=== PATIENT | female | born 1995 | race Caucasian/White ===

== ENCOUNTER 2020-12-11 07:58 | Day surgery (SDC) | payer MEDICAID ==
[~2020-12-11] VITALS: Ht 154.9 cm; Wt 46.5 kg
[2020-12-11] VITALS (7 sets, daily range): BP systolic 83–116; BP diastolic 33–73; PULSE 57–719; TEMP 97.8–98.2
--- NOTE | 2020-12-11 08:50 | NUR ---
Patient taken by bed for procedure. No further needs expressed from the patient.
[2020-12-11] MEDS ORDERED: IBU600 MG PO (09:38)
--- NOTE | 2020-12-11 10:05 | NUR ---
Patient back to room 342 from the OR. Patient A&Ox4, teary. VSS. Will continue to monitor. IV CDI. Patient instructed to call nursing staff for assistance with ambulation. Denies pain, only reports cramping. No further needs expressed from the patient. Call light within reach
--- NOTE | 2020-12-11 12:15 | NUR ---
Discharge paperwork reviewed with the patient. Patient verbalized an understanding to follow doctors orders. IV removed, tip intact, gauze and bandaid applied. Patient ambulated independently to the ER entrance for a ride home. No further needs expressed from the patient.
--- NOTE | 2020-12-11 15:33 | NUR ---
Plan to DC home. PCP is Dr. Dillard. Patient reports that she has a Fiance Catracho Lloyd that will support her , he will also transport home. Patient obtains medications form [facility]. Patient reports that she does not have any concerns for DC and does not use any medical EPC or have a POA. NF
== END 2020-12-11 12:15 | disposition home or self-care (01) ==
LOC: SDCO 07:58 → SURG 08:00 → SDCO 08:00 → SURG 10:46 → SDCO 12:15
DX: O02.1 Missed abortion (principal); Z87.891 Personal history of nicotine dependence
CPT/HCPCS: OP; J1885; J2405; J2704; J3010; J7120

== ENCOUNTER 2020-12-16 07:16 | Emergency (ER) | payer MEDICAID ==
[~2020-12-16] VITALS: Ht 154.9 cm; Wt 46.8 kg
[~2020-12-16 07:16] MED LIST: IBU600 MG PO
[2020-12-16 07:20] VITALS: TEMP 98.3
[2020-12-16 07:50] LABS: BASO # 0.1 (0.0-0.2); BASO % 0.4 % (0.0-2.0); EOS # 0.4 (0.0-0.7); EOS % 2.5 % (0-4.0); GRAN # 10.1 (1.4-6.5); GRAN % 67.4 % (42.2-75.2); HEMOGLOBIN 10.8 g/dl (12.5-16.0); LYMPH # 3.8 (1.2-3.4); LYMPH % 25.1 % (20.0-51.0); MEAN CELL VOLUME 93 fl (80.0-100.0); MEAN CORPUSCULAR HEMOGLOBIN 31 pg (27.0-31.0); MEAN CORPUSCULAR HGB CONC 33 g/dl (33.0-37.0); MEAN PLATELET VOLUME 9.5 fl (7.4-10.4); MONO # 0.6 (0.1-0.6); PLATELET COUNT 348 K/mm3 (130-400); RED BLOOD COUNT 3.53 M/mm3 (4.10-5.30); REDCELL DISTRIBUTION WIDTH-CV 12.5 % (11.5-14.5)
[2020-12-16 08:07] LABS: HEMATOCRIT 32.8 % (37.0-47.0)
[2020-12-16 08:27] VITALS: BP 106/67; PULSE 91
[2020-12-16] MEDS ORDERED: FLAGYL500 MG PO (22:17)
[2020-12-16] MEDS ORDERED: MOTRIN 400400 MG/TAB PO (22:17)
[2020-12-16] MEDS ORDERED: BACTRIM DS 8001 TAB PO (22:17)
== END 2020-12-16 08:27 | disposition home or self-care (01) ==
LOC: COL.ER 07:16
PROVIDERS: Emergency Medicine
DX: N93.8 Other specified abnormal uterine and vaginal bleeding (principal)
CPT/HCPCS: J1580; J1885

== ENCOUNTER 2021-04-30 19:08 | Emergency (ER) | payer MEDICAID ==
[~2021-04-30] VITALS: Ht 152.4 cm; Wt 48.2 kg
[~2021-04-30 19:08] MED LIST changes: +BACTRIM DS 8001 TAB PO; +FLAGYL500 MG PO; +MOTRIN 400400 MG/TAB PO
[2021-04-30 19:38] VITALS: TEMP 97.8
[2021-04-30 20:11] LABS: BASO # 0.1 (0.0-0.2); BASO % 0.4 % (0.0-2.0); EOS # 0.2 (0.0-0.7); EOS % 1.5 % (0-4.0); GRAN # 9.5 (1.4-6.5); GRAN % 60.7 % (42.2-75.2); HEMOGLOBIN 11.4 g/dl (12.5-16.0); LYMPH # 4.9 (1.2-3.4); LYMPH % 31.2 % (20.0-51.0); MEAN CELL VOLUME 81 fl (80.0-100.0); MEAN CORPUSCULAR HEMOGLOBIN 26 pg (27.0-31.0); MEAN CORPUSCULAR HGB CONC 32 g/dl (33.0-37.0); MEAN PLATELET VOLUME 9.3 fl (7.4-10.4); MONO # 0.9 (0.1-0.6); MONO % 5.7 % (1.7-9.3); PLATELET COUNT 355 K/mm3 (130-400); RED BLOOD COUNT 4.47 M/mm3 (4.10-5.30); REDCELL DISTRIBUTION WIDTH-CV 17.2 % (11.5-14.5)
[2021-04-30 20:12] LABS: HEMATOCRIT 36.2 % (37.0-47.0)
[2021-04-30 20:22] LABS: ALBUMIN 4.4 gm/dL (3.5-5.0); BILIRUBIN,TOTAL 0.2 mg/dL (0.0-1.0); CALCIUM 9.1 mg/dL (8.4-10.2); CREATININE, serum 0.59 (0.52-1.25); POTASSIUM 3.4 mmol/L (3.4-5.0); TOTAL PROTEIN 7.3 gm/dL (6.4-8.2)
[2021-04-30 21:15] LABS: MUCOUS Present /lpf; PH 5 (5-8); SQUAMOUS EPITHELIAL 0-2 /hpf; URINE APPEARANCE Hazy; URINE BACTERIA Rare /hpf; URINE BILIRUBIN Negative (NEGATIVE); URINE BLOOD 2+ (NEGATIVE); URINE CALCIUM OXALATE CRYSTAL Present /hpf; URINE COLOR Yellow; URINE GLUCOSE Negative (NEGATIVE); URINE KETONE Negative (NEGATIVE); URINE LEUKOCYTE ESTERASE Negative (NEGATIVE); URINE NITRATE Negative (NEGATIVE); URINE PROTEIN(semi-quant) Negative (NEGATIVE); URINE UROBILINOGEN Negative (NEGATIVE)
[2021-04-30 21:58] LABS: COLLECTION METHOD CLEAN CATCH
[2021-05-01] MEDS ORDERED: CEPHALEXIN500 M1 PO (00:09)
[2021-05-01 00:46] VITALS: BP 116/70; PULSE 72
== END 2021-05-01 00:48 | disposition home or self-care (01) ==
LOC: COL.ER 19:08
PROVIDERS: Emergency Medicine
DX: O23.91 Unspecified genitourinary tract infection in pregnancy, first trimester (principal); R82.71 Bacteriuria; O20.8 Other hemorrhage in early pregnancy; O20.0 Threatened abortion; Z3A.01 Less than 8 weeks gestation of pregnancy
CPT/HCPCS: J0696; J7030

== ENCOUNTER 2021-11-29 11:33 | Outpatient (CLI) | payer MEDICAID ==
[~2021-11-29] VITALS: Ht 152.4 cm; Wt 55.9 kg
[2021-11-29 10:39] VITALS: BP 101/64; PULSE 116; TEMP 98.4
[~2021-11-29 11:33] MED LIST changes: +CEPHALEXIN500 M1 PO
[2021-11-29 11:39] VITALS: BP 101/69; PULSE 116; TEMP 98.4
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
[2021-11-29 12:20] VITALS: PULSE 72
--- NOTE | 2021-11-29 12:37 | NUR ---
1220 REACTIVE STRIP NOTED. ALL DISCHARGE INSTRUCTIONS GIVEN TO PATIENT WITH VEREBAL UNDERSTANDING NOTED. DISMISS TO COME
== END 2021-11-29 12:20 | disposition home or self-care (01) ==
LOC: LDRO 11:33
DX: O36.8130 Decreased fetal movements, third trimester, not applicable or unspecified (principal); Z3A.37 37 weeks gestation of pregnancy

== ENCOUNTER 2021-12-02 01:09 | Outpatient (CLI) | payer MEDICAID ==
[~2021-12-02] VITALS: Ht 152.4 cm; Wt 56.4 kg
--- NOTE | 2021-12-02 01:15 | NUR ---
0115- PATIENT AMBULATORY TO THE UNIT. ORIENTATED TO ROOM AND CHANGED INTO CLEAN GOWN. PATIENT IS A AT [address] NUNEZ. PATIENT HERE FOR CONTRACTIONS THAT FOR THE LAST 2-3 HOURS HAVE BEEN ROUGHLY 3-5 MINUTES APART. PATIENT STATES WHEN SHE WENT TO THE BATHROOM SHE ALSO SAW A LITTLE BLOOD WHEN SHE WIPED AND WAS CONCERNED ABOUT THAT. DENIES LOF AND REPORTS GOOD MOVEMENT. 0119- EFM AND TOCO ON AND TRACING. VITALS AND ASSESSMENT COMPLETED. PLAN OF CARE DISCUSSED. 0125- SVE, 1-/-2 WITH NO BLOOD ON GLOVE AFTER CHECK. PATIENT DENIES FURTHER NEEDS. CALL LIGHT WITHIN REACH.
[2021-12-02 01:30] VITALS: BP 109/70; PULSE 93; TEMP 98
[2021-12-02 02:27] VITALS: BP 105/64; PULSE 81
== END 2021-12-02 02:35 | disposition home or self-care (01) ==
LOC: LDRO 01:09
DX: O47.1 False labor at or after 37 completed weeks of gestation (principal); Z3A.37 37 weeks gestation of pregnancy

== ENCOUNTER 2021-12-06 13:53 | Inpatient (IN) | payer MEDICAID ==
[2021-12-06] VITALS (31 sets, daily range): BP systolic 94–140; BP diastolic 53–73; PULSE 60–134; TEMP 97.6–98.1
[~2021-12-06] VITALS: Ht 152.4 cm; Wt 56.4 kg
[2021-12-06 15:00] LABS: BASO % 0.3 % (0.0-2.0); EOS # 0.1 K/mm3 (0.0-0.7); EOS % 0.9 % (0.0-4.0); GRAN # 9.6 K/mm3 (1.4-6.5); GRAN % 70.4 % (42.2-75.2); LYMPH # 2.7 K/mm3 (1.2-3.4); LYMPH % 19.9 % (20.0-51.0); MEAN CELL VOLUME 77 fl (80.0-100.0); MEAN CORPUSCULAR HGB CONC 31 g/dl (33.0-37.0); MEAN PLATELET VOLUME 9.8 fl (7.4-10.4); MONO # 1.1 K/mm3 (0.1-0.6); MONO % 7.9 % (1.7-9.3); PLATELET COUNT 255 K/mm3 (130-400); RED BLOOD COUNT 4.01 M/mm3 (4.10-5.30); REDCELL DISTRIBUTION WIDTH-CV 15.7 % (11.5-14.5)
[2021-12-06 15:05] LABS: HEMATOCRIT 30.9 % (37.0-47.0); HEMOGLOBIN 9.7 g/dl (12.5-16.0); MEAN CORPUSCULAR HEMOGLOBIN 24 pg (27-31)
[2021-12-06 16:55] LABS: TRICYCLIC ANTIDEPRESS URINE NEGATIVE
[2021-12-07 01:05] VITALS: BP 105/61; PULSE 96; TEMP 98.3
[2021-12-07 05:15] VITALS: BP 104/60; PULSE 76; TEMP 98.1
[2021-12-07 08:15] VITALS: BP 108/77; PULSE 77; TEMP 97.7
[2021-12-07] MEDS ORDERED: IBU800 M1 PO (09:05)
[2021-12-07 16:00] VITALS: BP 110/65; PULSE 84; TEMP 97.9
[2021-12-07 20:35] VITALS: BP 94/58; PULSE 96; TEMP 98.2
[2021-12-08 08:03] VITALS: BP 103/68; PULSE 81; TEMP 97.7
== END 2021-12-08 14:05 | disposition home or self-care (01) | DRG 807 ==
LOC: LDRO 13:53 → OB 14:32 → LDR 14:32 → OB 12-07 01:30
PROVIDERS: ADMIT Obstetrics & Gynecology
PROC: 10E0XZZ Delivery of Products of Conception, External Approach (ICD-10-PCS; principal; 2021-12-06)
PROC: 3E033VJ Introduction of Other Hormone into Peripheral Vein, Percutaneous Approach (ICD-10-PCS; 2021-12-06)
DX: O99.824 Streptococcus B carrier state complicating childbirth (principal); Z37.0 Single live birth; O99.013 Anemia complicating pregnancy, third trimester; D64.9 Anemia, unspecified; O99.324 Drug use complicating childbirth; F12.90 Cannabis use, unspecified, uncomplicated; F13.90 Sedative, hypnotic, or anxiolytic use, unspecified, uncomplicated; Z3A.37 37 weeks gestation of pregnancy
CPT/HCPCS: J2540; J2590; J7120